=== PATIENT | female | born 1940 | race Two or more races ===

== ENCOUNTER 2017-07-17 14:40 | Emergency (ER) | payer OTHER ==
[~2017-07-17] VITALS: Ht 160 cm; Wt 83.5 kg
[~2017-07-17 14:40] MED LIST: HYZAAR 50-12.51 EACH; NORVASC5 MG; OMEPRAZOLE40 MG PO; TOPROL XL100 M1
[2017-07-17] MEDS ORDERED: ATIVAN0.5 MG (15:53)
== END 2017-07-17 18:28 | disposition home or self-care (01) ==
LOC: ER 14:40
DX: M75.51 Bursitis of right shoulder (principal)

== ENCOUNTER 2017-08-21 09:41 | Outpatient (CLI) | payer OTHER ==
[~2017-08-21 09:41] MED LIST changes: +ATIVAN0.5 MG
== END 2017-08-21 14:09 | disposition home or self-care (01) ==
LOC: SONOGRAMA 09:41
DX: M65.811 Other synovitis and tenosynovitis, right shoulder (principal)

== ENCOUNTER 2018-06-09 11:26 | Outpatient (CLI) | payer OTHER | END 2018-06-09 11:34 | disposition home or self-care (01) | LOC: SONOGRAMA 11:26 | DX: M65.812 Other synovitis and tenosynovitis, left shoulder (principal) ==

== ENCOUNTER 2018-07-28 10:15 | Outpatient (CLI) | payer OTHER | END 2018-07-28 10:26 | disposition home or self-care (01) | LOC: LAB 10:15 → EDBD 10:15 → LAB 10:26 | DX: D68.8 Other specified coagulation defects (principal); I10 Essential (primary) hypertension; R07.89 Other chest pain; N39.0 Urinary tract infection, site not specified; E78.2 Mixed hyperlipidemia; Z01.810 Encounter for preprocedural cardiovascular examination; Z01.812 Encounter for preprocedural laboratory examination ==

== ENCOUNTER 2018-11-24 12:57 | Outpatient (CLI) | payer OTHER | END 2018-11-24 16:55 | disposition home or self-care (01) | LOC: RAD 12:57 | DX: M54.5 Low back pain (principal) ==

== ENCOUNTER → 2019-08-02 08:17 | Outpatient (CLI) | payer OTHER | END | disposition home or self-care (01) | LOC: LAB 08:17 | DX: E11.39 Type 2 diabetes mellitus with other diabetic ophthalmic complication (principal); I15.8 Other secondary hypertension; D68.32 Hemorrhagic disorder due to extrinsic circulating anticoagulants; D69.8 Other specified hemorrhagic conditions ==

== ENCOUNTER → 2019-08-02 | Outpatient (CLI) | payer OTHER | END | disposition home or self-care (01) | LOC: RAD 07:17 | DX: I15.8 Other secondary hypertension (principal); I10 Essential (primary) hypertension ==

== ENCOUNTER 2020-01-13 09:00 | Emergency (ER) | payer OTHER ==
[~2020-01-13] VITALS: Ht 160 cm; Wt 86.2 kg
[2020-01-13] MEDS ORDERED: CIPRO500 MG PO (11:33)
[2020-01-13] MEDS ORDERED: URETRON D-S TAB1 TAB PO (11:33)
== END 2020-01-13 12:13 | disposition home or self-care (01) ==
LOC: ER 09:00
DX: R30.0 Dysuria (principal); N39.0 Urinary tract infection, site not specified

== ENCOUNTER → 2020-02-18 09:41 | Outpatient (CLI) | payer OTHER ==
[~2020-02-18 09:41] MED LIST changes: +CIPRO500 MG PO; +URETRON D-S TAB1 TAB PO
== END | disposition home or self-care (01) ==
LOC: LAB 09:41
PROVIDERS: ATTEND Internal Medicine Cardiovascular Disease
DX: E03.8 Other specified hypothyroidism (principal); E78.2 Mixed hyperlipidemia; I10 Essential (primary) hypertension; E11.9 Type 2 diabetes mellitus without complications; Z12.11 Encounter for screening for malignant neoplasm of colon

== ENCOUNTER 2020-03-19 12:00 | Outpatient (CLI) | payer OTHER | END 2020-03-19 12:05 | disposition home or self-care (01) | LOC: LAB 12:00 | PROVIDERS: ATTEND Internal Medicine Cardiovascular Disease | DX: I10 Essential (primary) hypertension (principal); E11.9 Type 2 diabetes mellitus without complications; E03.8 Other specified hypothyroidism; E78.2 Mixed hyperlipidemia; Z12.11 Encounter for screening for malignant neoplasm of colon ==

== ENCOUNTER 2021-12-17 13:42 | Inpatient (IN) | payer OTHER ==
[~2021-12-17] VITALS: Ht 160 cm; Wt 86.2 kg
[2021-12-17] MEDS ORDERED: HYZAAR 100-12.1 EACH (13:58)
[2021-12-17] MEDS ORDERED: DUTOPROL 100-11 EACH (13:58)
[2021-12-17] MEDS ORDERED: NORVASC5 MG PO (13:59)
[2021-12-17] MEDS ORDERED: NORVASC5 MG (14:00)
[2021-12-17] MEDS ORDERED: DUTOPROL 25-121 EACH (14:00)
[2021-12-17] MEDS ORDERED: CATAFLAN (14:01)
--- NOTE | 2021-12-17 14:03 | NUR ---
SE RECIBE PTE ALERTA Y ORIENTADA X3. PTE REFIERE PRESION EN EL PECHO DESDE EL GAIL DE JERRY. SE REALIZA EKG Y SE [id number] EN AREA DE DOLOR DE PECHO.
--- NOTE | 2021-12-17 14:49 | NUR ---
PTE ALERTA,ESTABLE Y ORIENTADA.SE EDUCA SOBRE EDUCA SOBRE EL TRATAMIENTO QUE SE LE REALZLIARA EN EL HOSPITAL Y ESTA REFIERE ENTENDER.SE LE GILDARDO MUESTRAS DE DE SHEBA Y SE LE ADMINSITRA MEDICAMENTOS YVES ORDEN MEDICA.
--- NOTE | 2021-12-17 15:08 | NUR ---
SE RECIBE PACIENTE FEMENINA DE 81 ANOS DE EDAD DESPIERTA Y ALERTA EN CAMA CON BARANDAS ELEVADAS EN POSICION SEMI SENTADA CONECTADA A MONITOR CARDIACO, SATUROMETRIA TEMO. AREA DE VENOPUNCION PATENTE DARYN DE EDEMAS, ENROJECIMIENTO Y DOLOR AL TACTO. PACIENTE PENDIENTE A RESULTADOS DE LABORATORIOS
[2021-12-18] MEDS ORDERED: ROSUVASTATIN CAL5 MG (09:51)
[2021-12-18] MEDS ORDERED: METOPROLOL SUC100 MG (09:51)
[2021-12-18] MEDS ORDERED: DICLOFENAC POTA50 MG (09:51)
[2021-12-18] MEDS ORDERED: CLOPIDOGREL BIS75 MG (09:51)
[2021-12-18] MEDS ORDERED: LORAZEPAM0.5 MG (09:51)
== END 2021-12-20 08:32 | disposition designated cancer center or children's hospital (05) | DRG 282 ==
LOC: ER 13:42 → MEDI 19:20 → ICU 12-18 19:41
PROVIDERS: ADMIT Internal Medicine; ATTEND Internal Medicine
PROC: B345ZZZ Ultrasonography of Bilateral Common Carotid Arteries (ICD-10-PCS; 2021-12-17)
PROC: B24BZZZ Ultrasonography of Heart with Aorta (ICD-10-PCS; principal; 2021-12-18)
PROC: 4A12X4Z Monitoring of Cardiac Electrical Activity, External Approach (ICD-10-PCS; 2021-12-18)
DX: I21.4 Non-ST elevation (NSTEMI) myocardial infarction (principal); R07.89 Other chest pain; I10 Essential (primary) hypertension; Z20.822 Contact with and (suspected) exposure to COVID-19

== ENCOUNTER 2023-06-16 19:19 | Emergency (ER) | payer OTHER ==
[~2023-06-16] VITALS: Ht 160 cm; Wt 81.6 kg
[~2023-06-16 19:19] MED LIST changes: +CATAFLAN; +CLOPIDOGREL BIS75 MG; +DICLOFENAC POTA50 MG; +DUTOPROL 100-11 EACH; +DUTOPROL 25-121 EACH; +HYZAAR 100-12.1 EACH; +LORAZEPAM0.5 MG; +METOPROLOL SUC100 MG; +NORVASC5 MG PO; +ROSUVASTATIN CAL5 MG
[2023-06-16 20:58] LABS: HEMATOCRIT 38.7 % (36.0-45.00); MEAN CELL VOLUME 83.9 fL (80.00-100.00); MEAN CORPUSCULAR HEMOGLOBIN 28.1 pg (27.00-32.0); MEAN CORPUSCULAR HGB CONC 33.5 g/dl (32.0-36.0); PLATELET COUNT 193 K/uL (150-450); RED BLOOD COUNT 4.62 M/uL (4.00-6.00); RED CELL DISTRIBUTION WIDTH 14.9 % (11.5-14.5)
[2023-06-16] MEDS ORDERED: PAXLOVID 300-11 EACH PO (21:59)
== END 2023-06-16 22:07 ==
LOC: ER 19:19
PROVIDERS: Nurse Practitioner Family
DX: U07.1 COVID-19 (principal); I10 Essential (primary) hypertension
CPT/HCPCS: 36415; 96372; 99284; J1885

== ENCOUNTER 2024-02-18 12:47 | Emergency (ER) | payer OTHER ==
[~2024-02-18] VITALS: Ht 157.5 cm; Wt 81.6 kg
[~2024-02-18 12:47] MED LIST changes: +PAXLOVID 300-11 EACH PO
[2024-02-18] MEDS ORDERED: ELIQUIS5 MG PO (13:26)
[2024-02-18] MEDS ORDERED: KETOROLAC TROMETHAMINE 60 MG VIAL IM ONE (13:45)
== END 2024-02-18 14:09 | disposition home or self-care (01) ==
LOC: ER 12:48
DX: M12.571 Traumatic arthropathy, right ankle and foot (principal); T14.90XS Injury, unspecified, sequela; X50.9XXS Other and unspecified overexertion or strenuous movements or postures, sequela; I25.2 Old myocardial infarction; E78.00 Pure hypercholesterolemia, unspecified; I10 Essential (primary) hypertension; I25.10 Atherosclerotic heart disease of native coronary artery without angina pectoris
CPT/HCPCS: 73610; 96372; 99283; J1885